=== PATIENT | male | born 1945 | race Caucasian/White ===

== ENCOUNTER 2018-11-04 21:16 | Emergency (ER) | payer MEDICARE ==
[~2018-11-04 21:16] MED LIST: ISOVUE-370 76%-LOCM 1 ML ONE
[2018-11-04 22:01] LABS: Bilirubin Moderate (Negative); Blood, Urine Large (Negative); Glucose, Urine (Dipstick) 250 mg/dL (Negative); Leukocyte Negative (Negative); Nitrite Negative (Negative); Protein, Urine (Dipstick) > or equal to 300 mg/dL (Neg-Trace)
[2018-11-04 22:03] LABS: Clarity Cloudy (Clear)
[2018-11-04 22:05] LABS: #Eosinphils 0.1 thou/uL (0.0-0.7); #Lymphocytes 0.8 thou/uL (1.20-3.40); #Monocytes 0.8 thou/uL (0.11-0.59); #Neutrophils 6.9 thou/uL (1.40-6.50); %Basophils 0.2 % (0.0-1.0); %Lymphocytes 9.2 % (21.0-51.0); %Monocytes 9.1 % (0.0-10.0); %Neutrophils 80.6 % (42.0-75.0); Hemoglobin 14.7 g/dL (14.0-18.0); Mean Corpuscular HGB CONC 34.4 g/dL (32.0-36.0); Mean Corpuscular Hemoglobin 32.2 pg (27.0-31.0); Mean Corpuscular Volume 93.6 fL (78.0-98.0); Platelet Count 225 thou/uL (130-400); RBC Distribution Width 11.6 % (11.5-14.5); Red Blood Cell (RBC) Count 4.57 mill/uL (4.70-6.10); White Blood Cell (WBC) Count 8.6 thou/uL (4.8-10.8)
[2018-11-04 22:07] LABS: RBC/HPF Greater than 50 HPF (0-3)
[2018-11-04 22:08] LABS: Squamous Epithelial 0-3 HPF (0-3)
[2018-11-04 22:09] LABS: Bacteria/HPF 1+ HPF (None Seen); Calcium Oxalate Crystals Rare HPF (None Seen)
[2018-11-04 22:25] LABS: ALT (SGPT) Less than 7 U/L (8-55); AST (SGOT) 11 U/L (5-34); Albumin 4.1 g/dL (3.4-4.8); Alkaline Phosphatase 83 U/L (40-150); Anion Gap 16 mmol/L (10-20); BUN (Urea Nitrogen) 15 mg/dL (8.4-25.7); Bilirubin, Total 0.7 mg/dL (0.2-1.2); Calc. Creatinine Clearance 0 mL/min (70-130); Calcium 9.8 mg/dL (7.8-10.44); Carbon Dioxide 23 mmol/L (23-31); Chloride 103 mmol/L (98-107); Estimated GFR-MDRD 66; Globulin 2.9 g/dL (2.4-3.5); Glucose 283 mg/dL (83-110); Lipase 11 U/L (8-78); Potassium 4.1 mmol/L (3.5-5.1); Sodium 138 mmol/L (136-145)
[2018-11-04 22:35] LABS: Digoxin 0.36 ng/mL (0.8-2.0)
--- NOTE | 2018-11-04 23:19 | CT ---
CT OF ABDOMEN AND PELVIS 11/04/18 COMPARISON: 09/30/15. HISTORY: Left lower quadrant pain. TECHNIQUE: Axial CT imaging at 5 mm intervals from lung bases through pubic symphysis with IV contrast. Coronal reformatted imaging obtained. FINDINGS: The imaged lung bases are unremarkable. No free intraperitoneal air or fluid is seen. The hepatic parenchyma is hypodense suggesting steatosis. Splenic granulomata are noted. Gallbladder appears grossly unremarkable. There is fatty atrophy of the pancreas. The adrenal glands are unremar kable. There is mild hydronephrosis on the left with mild left sided hydroureter. This is secondary to an ob structing stone within the left ureter. At the axial level of the mid sacrum, best seen on image 68, measuring approximately 5 mm. There is no evidence for obstructive uropathy on the right. There is a cyst within the inferior aspect of the right renal hilum. Limited assessment of the bowel without oral contrast media demonstrates no evidence for inflammatory change or obstruction. The appendix is unremarkable. Small bilateral fat containing inguinal hernias are present. There is extensive atherosclerotic calcification of the abdominal aorta and its branches. No retroper itoneal lymphadenopathy. Review of the osseous structures demonstrates multilevel lumbar spine degene rative change. No suspicious lytic or blastic bone lesion. IMPRESSION: Obstructive uropathy on the left secondary to a 5 mm obstructing stone within the left ureter as deta iled above. POS: OFF
--- NOTE | 2018-11-04 23:21 | RAD ---
PORTABLE UPRIGHT FRONTAL CHEST RADIOGRAPH: 11/04/18 COMPARISON: None. HISTORY: Pain. FINDINGS: There is increased linear interstitial density and pulmonary hyperinflation suggesting COPD in the pr oper clinical setting. No pneumothorax, pleural fluid, focal consolidation, or alveolar edema. IMPRESSION: No acute findings. POS: OFF
== END 2018-11-05 00:27 | disposition home or self-care (01) ==
LOC: ERS 21:16
DX: N13.2 Hydronephrosis with renal and ureteral calculous obstruction (principal); N39.0 Urinary tract infection, site not specified; R31.0 Gross hematuria; I49.9 Cardiac arrhythmia, unspecified; I48.91 Unspecified atrial fibrillation; E10.9 Type 1 diabetes mellitus without complications; E78.5 Hyperlipidemia, unspecified; I10 Essential (primary) hypertension; F41.9 Anxiety disorder, unspecified; F32.9 Major depressive disorder, single episode, unspecified; Z79.899 Other long term (current) drug therapy; Z79.01 Long term (current) use of anticoagulants
CPT/HCPCS: 36415; 71045; 74177; 80053; 80162; 81003; 81015; 82550; 83690; 84484; 85025; 87086; 93005; Q9966

== ENCOUNTER 2020-07-02 14:08 | Emergency (ER) | payer MEDICARE ==
[2020-07-02 15:04] LABS: #Eosinphils 0.1 thou/uL (0.0-0.7); #Lymphocytes 1.2 thou/uL (1.20-3.40); #Monocytes 0.8 thou/uL (0.11-0.59); #Neutrophils 6.8 thou/uL (1.40-6.50); %Basophils 0.4 % (0.0-1.0); %Lymphocytes 13.1 % (21.0-51.0); %Monocytes 9.2 % (0.0-10.0); %Neutrophils 76.3 % (42.0-75.0); Hemoglobin 15.1 g/dL (14.0-18.0); Mean Corpuscular HGB CONC 34.7 g/dL (32.0-36.0); Mean Corpuscular Hemoglobin 33.9 pg (27.0-31.0); Mean Corpuscular Volume 97.7 fL (78.0-98.0); Mean Platelet Volume 7.5 fL (7.4-10.4); Platelet Count 176 thou/uL (130-400); RBC Distribution Width 11.8 % (11.5-14.5); Red Blood Cell (RBC) Count 4.44 mill/uL (4.70-6.10); White Blood Cell (WBC) Count 8.9 thou/uL (4.8-10.8)
[2020-07-02 15:14] LABS: Actual Bicarbonate (HCO3v) 24 mEq/L (22-28); Analyzer IN Cardio ER; Base Excess -1.7 mEq/L (-2.0 to +3.0); Calcium, Ionized (venous) 1.14 mmol/L (1.16-1.32); Chloride (VBG) 105 mmol/L (98-106); Hemoglobin (Hb) 15.7 g/dL (12.6-17.4); Potassium (VBG) 4.48 mmol/L (3.70-5.30); Sodium 136.8 mmol/L (133-146); pH (venous) 7.35 (7.32-7.43)
[2020-07-02 15:25] LABS: ALT (SGPT) 13 U/L (8-55); AST (SGOT) 10 U/L (5-34); Albumin 3.7 g/dL (3.4-4.8); Alkaline Phosphatase 79 U/L (40-110); Anion Gap 14 mmol/L (10-20); BUN (Urea Nitrogen) 20 mg/dL (8.4-25.7); Bilirubin, Total 0.7 mg/dL (0.2-1.2); Calc. Creatinine Clearance 0 mL/min (70-130); Calcium 8.5 mg/dL (7.8-10.44); Carbon Dioxide 23 mmol/L (23-31); Chloride 104 mmol/L (98-107); Globulin 2.4 g/dL (2.4-3.5); Glucose 248 mg/dL (83-110); Lipase 18 U/L (8-78); Magnesium 1.7 mg/dL (1.6-2.6); Phosphorus 3.2 mg/dL (2.3-4.7); Potassium 4.1 mmol/L (3.5-5.1); Protein, Total 6.1 g/dL (5.8-8.1); Sodium 137 mmol/L (136-145)
== END 2020-07-02 16:55 | disposition home or self-care (01) ==
LOC: ERS 14:08
DX: E10.65 Type 1 diabetes mellitus with hyperglycemia (principal); I48.91 Unspecified atrial fibrillation; I10 Essential (primary) hypertension; E78.00 Pure hypercholesterolemia, unspecified; E78.5 Hyperlipidemia, unspecified; Z79.899 Other long term (current) drug therapy; Z79.01 Long term (current) use of anticoagulants; Z87.19 Personal history of other diseases of the digestive system
CPT/HCPCS: 36415; 36416; 71045; 80053; 82010; 82805; 83690; 83735; 84100; 84484; 85025